=== PATIENT | female | born 1980 | race African-American/Black ===

== ENCOUNTER 2019-01-04 12:18 | Emergency (ER) | payer MEDICAID ==
[~2019-01-04] VITALS: Ht 165.1 cm; Wt 100.0 kg
[2019-01-04] MEDS ORDERED: IBUPROFEN 800MG TABLET PO ONE (13:00)
[2019-01-04] MEDS ORDERED: LORAZEPAM 0.5MG TABLET PO ONE (14:30)
[2019-01-04 14:46] VITALS: BP 159/94
== END 2019-01-04 15:18 | disposition home or self-care (01) ==
LOC: ER 12:18
DX: M54.5 Low back pain (principal); R07.9 Chest pain, unspecified; I10 Essential (primary) hypertension; W01.0XXA Fall on same level from slipping, tripping and stumbling without subsequent striking against object, initial encounter; Y93.89 Activity, other specified; Y92.89 Other specified places as the place of occurrence of the external cause; Y99.8 Other external cause status
CPT/HCPCS: 71045; 93005; 99283